=== PATIENT | male | born 1985 | race Caucasian/White ===

== ENCOUNTER 2016-09-07 08:44 | Emergency (ER) | payer BC ==
[~2016-09-07] VITALS: Ht 193 cm; Wt 100.0 kg
[2016-09-07 08:46] VITALS: BP 144/65; PULSE 81; RESP 15; TEMP 98.2; O2SAT 99
--- NOTE | 2016-09-07 10:11 | PD ---
HPI Chief Complaint: Exposure to Blood/Body Fluids Time Seen by Provider: 10:08 Travel History International Travel<30 days: No Contact w/Intl Traveler<30days: No Traveled to known affect area: No History of Present Illness HPI 31-year-old male presents to emergency Department with history of sharing a needle with a girl friend that he feels has HIV. He is here for testing and possible prophylactic treatment. Patient states this occurred 2 days ago. Patient denies fever, chills, or other symptoms. He has no known drug allergies. [facility] Past Medical History Medical History: Denies Significant Hx Past Surgical History Surgical History: No Previous Surgery Social History Alcohol Use: Yes (occ) Tobacco Use: Yes Substance Use: Yes (cocaine, iv drugs) Allergies-Medications (Allergen,Severity, Reaction): Coded Allergies: No Known Allergies (Unverified , 09/07/16) Reported Meds & Prescriptions Reported Meds & Active Scripts Active No Active Prescriptions or Reported Medications Review of Systems Except as stated in HPI: all other systems reviewed are Neg General / Constitutional: No: Fever Eyes: No: Visual changes HENT: No: Headaches Cardiovascular: No: Chest Pain or Discomfort Respiratory: No: Shortness of Breath Gastrointestinal: No: Abdominal Pain Genitourinary: No: Dysuria Musculoskeletal: No: Pain Skin: No Rash Neurologic: No: Weakness Psychiatric: No: Depression Endocrine: No: Polydipsia Hematologic/Lymphatic: No: Easy Bruising Physical Exam Narrative GENERAL: Patient appears no acute distress. SKIN: Warm and dry. Normal puncture wounds from previous IV drug use noted without signs of infection currently. HEAD: Atraumatic. Normocephalic. EYES: Pupils equal and round. No scleral icterus. No injection or drainage. ENT: No nasal bleeding or discharge. Mucous membranes pink and moist. Pharynx is clear and is patent. NECK: Trachea midline. Supple and nontender. CARDIOVASCULAR: Regular rate and rhythm. No murmurs gallops or rubs appreciated. RESPIRATORY: No accessory muscle use. Clear to auscultation. Breath sounds equal bilaterally. MUSCULOSKELETAL: Extremities without clubbing, cyanosis, or edema. No obvious deformities. NEUROLOGICAL: Awake and alert. No obvious cranial nerve deficits. Motor grossly within normal limits. Five out of 5 muscle strength in the arms and legs. Normal speech. PSYCHIATRIC: Appropriate mood and affect; insight and judgment normal. Data Data Last Documented VS Vital Signs Date Time Temp Pulse Resp B/P Pulse Ox O2 Delivery O2 Flow Rate FiO2 09/07/16 08:46 98.2 81 15 144/65 99 MDM Medical Decision Making Medical Screen Exam Complete: Yes Emergency Medical Condition: Yes Differential Diagnosis Possible HIV exposure. History of IV drug use. Need for testing and prophylaxis treatment. Narrative Course Patient is discussed with Dr. Srivastava who recommends patient follow up with the [facility] Department directly today. This will ensure proper follow-up as we cannot provide that here in the emergency department. Patient is agreeable to this plan and will follow with the health department immediately. A medical screening exam was performed: At the time of evaluation the presenting medical condition was determined not to be of an emergent nature. The patient was given the option of receiving additional care, but declined. Patient was given options for additional community resources from which to obtain care. The Patient Has Been advised to seek medical attention for their presenting complaint. The patient has been advised to return to the ER at any time if an emergent condition develops. Scripts No Active Prescriptions or Reported Meds Condition: Julio César Hong Sep 07, 2016 10:11 Disposition: 01 DISCHARGE HOME Condition: Julio César Hong Sep 07, 2016 10:11
== END 2016-09-07 10:51 | disposition left against medical advice (07) ==
LOC: NEPD 08:44
DX: R68.89 Other general symptoms and signs (principal)
CPT/HCPCS: 99281

== ENCOUNTER 2016-12-06 05:42 | Inpatient (IN) | payer BC ==
[~2016-12-06] VITALS: Ht 190.5 cm; Wt 110.0 kg
[2016-12-06 05:46] VITALS: BP 144/88; PULSE 93; RESP 16; TEMP 99.2; O2SAT 97
[2016-12-06] MEDS ORDERED: DIAZ5 PO (05:50)
--- NOTE | 2016-12-06 06:13 | PD ---
HPI Chief Complaint: General Weakness Time Seen by Provider: 05:55 Travel History International Travel<30 days: No Contact w/Intl Traveler<30days: No Traveled to known affect area: No History of Present Illness HPI So 31-year-old man who presents to the emergency department complaining of weakness. He states he has been trying to get off of opiates and so is been taking GHB pretty much every hour. He's had trouble with a lot of diarrhea. He also tried crystal meth recently which he thinks was a mistake. He states he 's gotten more fatigued and weak and has cramps and has difficulty getting out of bed now. States he was by himself. States that GHB helps with his nausea but he thinks he's overdoing it. He also abuses steroids. He had some cough recently. Had nausea but no vomiting. No other recent illnesses or injuries. History Past Medical History Narrative Medical Polysubstance abuse Social History Alcohol Use: Yes (occ) Tobacco Use: Yes Allergies-Medications (Allergen,Severity, Reaction): Coded Allergies: No Known Allergies (Unverified , 09/07/16) Reported Meds & Prescriptions Reported Meds & Active Scripts Active Reported Valium (Diazepam) 5 Mg Tab 5 Mg PO BID PRN Review of Systems Except as stated in HPI: all other systems reviewed are Neg Physical Exam Narrative GENERAL: Muscular 31-year-old man, no acute distress. SKIN: Focused skin assessment warm/dry. NECK: Trachea midline. No JVD. CARDIOVASCULAR: Regular rate and rhythm. No murmur appreciated. RESPIRATORY: No accessory muscle use. Clear to auscultation. Breath sounds equal bilaterally. GASTROINTESTINAL: Abdomen soft, non-tender, nondistended. Hepatic and splenic margins not palpable. MUSCULOSKELETAL: No obvious deformities. No clubbing. No cyanosis. No edema. NEUROLOGICAL: Awake and alert. No obvious cranial nerve deficits. Motor grossly within normal limits. Some mild generalized weakness. Normal speech. PSYCHIATRIC: Appropriate mood and affect; insight and judgment normal. Data Data Last Documented VS Vital Signs Date Time Temp Pulse Resp B/P (MAP) Pulse Ox O2 Delivery O2 Flow Rate FiO2 12/06/16 05:46 99.2 93 16 144/88 (106) 97 Orders Orders Complete Blood Count With Diff (12/06/16 06:03) Comprehensive Metabolic Panel (12/06/16 06:03) Creatine Kinase (Cpk) (12/06/16 06:03) Iv Access Insert/Monitor (12/06/16 06:03) Sodium Chlor 0.9% 1000 Ml Inj (Ns 1000 M (12/06/16 06:15) Ondansetron Inj (Zofran Inj) (12/06/16 06:15) Electrocardiogram (12/06/16 05:50) Labs Laboratory Tests Test 12/06/16 06:09 White Blood Count 8.7 TH/MM3 Red Blood Count 5.74 MIL/MM3 Hemoglobin 18.3 GM/DL Hematocrit 53.5 % Mean Corpuscular Volume 93.3 FL Mean Corpuscular Hemoglobin 31.8 PG Mean Corpuscular Hemoglobin Concent 34.1 % Red Cell Distribution Width 13.7 % Platelet Count 188 TH/MM3 Mean Platelet Volume 9.2 FL Neutrophils (%) (Auto) 67.6 % Lymphocytes (%) (Auto) 20.8 % Monocytes (%) (Auto) 8.3 % Eosinophils (%) (Auto) 2.7 % Basophils (%) (Auto) 0.6 % Neutrophils # (Auto) 5.9 TH/MM3 Lymphocytes # (Auto) 1.8 TH/MM3 Monocytes # (Auto) 0.7 TH/MM3 Eosinophils # (Auto) 0.2 TH/MM3 Basophils # (Auto) 0.1 TH/MM3 CBC Comment AUTO DIFF Blood Urea Nitrogen 8 MG/DL Creatinine 1.18 MG/DL Random Glucose 124 MG/DL Albumin 3.4 GM/DL Calcium Level 9.0 MG/DL Aspartate Amino Transf (AST/SGOT) 231 U/L Alanine Aminotransferase (ALT/SGPT) 142 U/L Sodium Level 142 MEQ/L Potassium Level 2.5 MEQ/L Chloride Level 112 MEQ/L Carbon Dioxide Level 20.8 MEQ/L Anion Gap 9 MEQ/L Estimat Glomerular Filtration Rate 72 ML/MIN MDM Medical Decision Making Medical Screen Exam Complete: Yes Emergency Medical Condition: Yes Interpretation(s) My review of EKG: Normal sinus rhythm at a rate of 94, normal axis, normal intervals, no acute ischemia. Differential Diagnosis Hypokalemia, rhabdomyolysis, adverse effects of illicit drugs, other Narrative Course Medical decision making 31-year-old man presents with generalized weakness and muscle cramps in the setting of opiate withdrawal and GHB abuse. We'll check electrolytes, total CK. Recommend cessation of all illicit drugs. Homer Patel MD Dec 06, 2016 06:13
[2016-12-06] MEDS ORDERED: SODIUM CHLOR 0.9% 1000 ML INJ 1,000 ML IV ONE (06:15)
[2016-12-06] MEDS ORDERED: ONDANSETRON HCL 4 MG/2 ML VIAL IV ONE (06:15)
[2016-12-06 06:19] LABS: AUTOMATED NEUTROPHIL # 5.9 TH/MM3 (1.8-7.7); BASOPHIL # 0.1 TH/MM3 (0-0.2); BASOPHIL % 0.6 % (0.0-2.0); EOSINOPHIL # 0.2 TH/MM3 (0-0.4); EOSINOPHIL % 2.7 % (0.0-4.0); HEMATOCRIT 53.5 % (39.0-51.0); LYMPH % 20.8 % (9.0-44.0); LYMPHOCYTE # 1.8 TH/MM3 (1.0-4.8); MEAN CELL VOLUME 93.3 FL (80.0-100.0); MEAN CORPUSCULAR HEMOGLOBIN 31.8 PG (27.0-34.0); MEAN CORPUSCULAR HGB CONC 34.1 % (32.0-36.0); MONO % 8.3 % (0.0-8.0); NEUT % 67.6 % (16.0-70.0); PLATELET COUNT 188 TH/MM3 (150-450); RED BLOOD COUNT 5.74 MIL/MM3 (4.50-5.90); RED CELL DISTRIBUTION WIDTH 13.7 % (11.6-17.2); WHITE BLOOD COUNT 8.7 TH/MM3 (4.0-11.0)
[2016-12-06 06:29] LABS: HEMO FLAGS AUTO DIFF
[2016-12-06 06:48] LABS: ALT (GPT) 142 U/L (12-78); ANION GAP 9 MEQ/L (5-15); AST (GOT) 231 U/L (15-37); BICARBONATE 20.8 MEQ/L (21.0-32.0); BLOOD UREA NITROGEN 8 MG/DL (7-18); CHLORIDE 112 MEQ/L (98-107); GLOMERULAR FILTRATION RATE 72 ML/MIN (>89); SODIUM (NA) 142 MEQ/L (136-145)
[2016-12-06 06:52] LABS: POTASSIUM 2.5 MEQ/L (3.5-5.1)
[2016-12-06 07:10] VITALS: BP 144/88; PULSE 82; RESP 18; O2SAT 98
[2016-12-06 07:10] LABS: ALKALINE PHOSPHATASE 59 U/L (45-117); CREATINE KINASE 10346 U/L (39-308); TOTAL BILIRUBIN ADULT 0.7 MG/DL (0.2-1.0)
[2016-12-06 07:12] LABS: BANDS 1 % (0-6); BASOPHILS 1 % (0-2); EOSINOPHILS 4 % (0-4); MYELOCYTES 1 % (0-0); NEUTROPHIL # MANUAL DIFF 5.4 TH/MM3 (1.8-7.7); PLATELET ESTIMATE SMEAR NORMAL (NORMAL); PLATELET MORPHOLOGY NORMAL (NORMAL); POLYS (SEG NEUTROPHILS) 60 % (16-70); SCAN/DIFF FINAL DIFF MANUAL; WBC DIFF SAMPLE 100
[2016-12-06 07:28] LABS: CKMB 32.7 NG/ML (0.5-3.6)
[2016-12-06] MEDS ORDERED: LACTULOSE SYRUP 20 GM/30 ML CUP PO PRN (07:45)
[2016-12-06] MEDS ORDERED: NALOXONE HCL 0.4 MG/ML AMP IV PUSH PRN (07:45)
[2016-12-06] MEDS ORDERED: MAGNESIUM HYDROXIDE SUSP 30 ML CUP PO PRN (07:45)
[2016-12-06] MEDS ORDERED: SENNOSIDES 8.6 MG TAB PO PRN (07:45)
[2016-12-06] MEDS ORDERED: NS + KCL 40 MEQ INJ 1,000 ML IV SCH (07:45)
[2016-12-06] MEDS ORDERED: ONDANSETRON HCL 4 MG/2 ML VIAL IVP PRN (07:45)
[2016-12-06] MEDS ORDERED: SODIUM CHLORIDE 0.9% FLUSH 10 ML FLUSH IV FLUSH PRN (07:45)
[2016-12-06] MEDS ORDERED: BISACODYL 10 MG SUPP RECTAL PRN (07:45)
--- NOTE | 2016-12-06 08:58 | PD ---
Physical Exam Date Seen by Provider: Dec 06, 2016 Time Seen by Provider: 07:00 Narrative The patient was slotted to be admitted to the [facility] for a potassium of 2.5. Patient's CPK also came back at 10,000. 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 The patient also has a history of opiate use. The patient was initially amenable to admission. We have started him on normal saline with 40 mEq potassium chloride. At 845, the nurse informed me that the patient wished to sign out AGAINST MEDICAL ADVICE. I did discuss with him that he had a condition that would likely cause damage to his kidneys including kidney failure. I urged him to stay in the hospital as we needed to make sure that we flushed his kidneys with fluids and also treated his low potassium. The patient was appropriate and understood however stated he did not wish to stay. I discussed with him that he can come back at any time. He stated he did not wish to stay. This discussion took place in the presence of the nurse, Nasim Naylor. Data Data Last Documented VS Vital Signs Date Time Temp Pulse Resp B/P (MAP) Pulse Ox O2 Delivery O2 Flow Rate FiO2 12/06/16 07:10 82 18 144/88 (106) 98 Room Air 12/06/16 05:46 99.2 Orders Orders Complete Blood Count With Diff (12/06/16 06:03) Comprehensive Metabolic Panel (12/06/16 06:03) Creatine Kinase (Cpk) (12/06/16 06:03) Iv Access Insert/Monitor (12/06/16 06:03) Sodium Chlor 0.9% 1000 Ml Inj (Ns 1000 M (12/06/16 06:15) Ondansetron Inj (Zofran Inj) (12/06/16 06:15) Electrocardiogram (12/06/16 05:50) CKMB (12/06/16 06:09) CKMB% (12/06/16 06:09) Admit Order (Ed Use Only) (12/06/16 07:34) Ns + Kcl 40 Meq Inj (Ns + Kcl 40 Meq Inj (12/06/16 07:45) Labs Laboratory Tests Test 12/06/16 06:09 White Blood Count 8.7 TH/MM3 Red Blood Count 5.74 MIL/MM3 Hemoglobin 18.3 GM/DL Hematocrit 53.5 % Mean Corpuscular Volume 93.3 FL Mean Corpuscular Hemoglobin 31.8 PG Mean Corpuscular Hemoglobin Concent 34.1 % Red Cell Distribution Width 13.7 % Platelet Count 188 TH/MM3 Mean Platelet Volume 9.2 FL Neutrophils (%) (Auto) 67.6 % Lymphocytes (%) (Auto) 20.8 % Monocytes (%) (Auto) 8.3 % Eosinophils (%) (Auto) 2.7 % Basophils (%) (Auto) 0.6 % Neutrophils # (Auto) 5.9 TH/MM3 Lymphocytes # (Auto) 1.8 TH/MM3 Monocytes # (Auto) 0.7 TH/MM3 Eosinophils # (Auto) 0.2 TH/MM3 Basophils # (Auto) 0.1 TH/MM3 CBC Comment AUTO DIFF Differential Total Cells Counted 100 Neutrophils % (Manual) 60 % Band Neutrophils % 1 % Lymphocytes % 24 % Monocytes % 9 % Eosinophils % 4 % Basophils % 1 % Neutrophils # (Manual) 5.4 TH/MM3 Myelocytes 1 % Differential Comment FINAL DIFF MANUAL Platelet Estimate NORMAL Platelet Morphology Comment NORMAL Blood Urea Nitrogen 8 MG/DL Creatinine 1.18 MG/DL Random Glucose 124 MG/DL Total Protein 7.3 GM/DL Albumin 3.4 GM/DL Calcium Level 9.0 MG/DL Alkaline Phosphatase 59 U/L Aspartate Amino Transf (AST/SGOT) 231 U/L Alanine Aminotransferase (ALT/SGPT) 142 U/L Total Bilirubin 0.7 MG/DL Sodium Level 142 MEQ/L Potassium Level 2.5 MEQ/L Chloride Level 112 MEQ/L Carbon Dioxide Level 20.8 MEQ/L Anion Gap 9 MEQ/L Estimat Glomerular Filtration Rate 72 ML/MIN Total Creatine Kinase 73370 U/L Creatine Kinase MB 32.7 NG/ML Creatine Kinase MB % 0.3 % [facility] Medical Record Reviewed: Yes Supervised Visit with ADWOA: No Narrative Course 31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 The patient was noted to have a potassium of 2.5 by the previous physician caring for this patient. He'll arrange for admission to the [facility] service. The patient was admitted under observation to the service however shortly thereafter decided he did not wish to stay in the hospital. Despite in-depth discussion including discussion that he could possibly , patient stated he still wished to sign out AGAINST MEDICAL ADVICE. The patient was told he come back at any time. AMA: The risks of leaving against medical advice without further evaluation treatment were discussed with the patient. These risks include cardiac dysfunction, cardiac dysrhythmia, possible heart attack, possible stroke or . The patient indicated understanding of these risks and appeared to have the capacity to make this decision. Diagnosis Primary Impression: Hypokalemia Additional Impressions: Rhabdomyolysis Left against medical advice Disposition: 07 AGAINST MEDICAL ADVICE Twin Amador MD Dec 06, 2016 08:58
[2016-12-06] MEDS ORDERED: SODIUM CHLORIDE 0.9% FLUSH 10 ML FLUSH IV FLUSH SCH (09:00)
--- NOTE | 2016-12-06 12:45 | EKG ---
Date Performed: 12/06/2016 Time Performed: 05:50:59 PTAGE: 31 years EKG: Sinus rhythm POSSIBLE LEFT VENTRICULAR HYPERTROPHY AND ST-T CHANGE ABNORMAL ECG NO PREVIOUS TRACING DOCTOR: Fabián Del Real Interpretating Date/Time 12/06/2016 12:44:46
[2016-12-06] MEDS ORDERED: DIAZEPAM 5 MG TAB PO PRN (14:45)
[2016-12-06 16:51] LABS: CKMB 39.6 NG/ML (0.5-3.6)
--- NOTE | 2016-12-06 19:19 | EKG ---
Date Performed: 12/06/2016 Time Performed: 07:23:27 PTAGE: 31 years EKG: Sinus rhythm NONSPECIFIC ST/T ABNORMALITIES ABNORMAL ECG PREVIOUS TRACING : 12/06/2016 05.50 No significant change from previous tracing noted. DOCTOR: Fabián Del Real Interpretating Date/Time 12/06/2016 19:19:01
== END 2016-12-06 09:16 | disposition left against medical advice (07) | DRG 558 ==
LOC: NEPE 05:42 → NEDA 07:36 → OBSVTOIN 07:50
PROVIDERS: ADMIT Internal Medicine; ATTEND Internal Medicine
DX: M62.82 Rhabdomyolysis (principal); E87.6 Hypokalemia; Z72.0 Tobacco use
CPT/HCPCS: 80053; 82550; 82552; 85007; 85027; 93005; 96361; 96374; J2405; J3480; J7030

== ENCOUNTER 2016-12-06 13:39 | Inpatient (IN) | payer BC ==
[2016-12-05] MEDS: D5-1/2 NS + KCL 20 MEQ INJ 1,000 ML IV SCH (21:00)
[~2016-12-06] VITALS: Ht 190.5 cm; Wt 107.0 kg
[2016-12-06] VITALS (7 sets, daily range): BP systolic 144–156; BP diastolic 82–99; PULSE 96–126; RESP 16–24; TEMP 96.2–98.2; O2SAT 96–99
[~2016-12-06 13:39] MED LIST: DIAZ5 PO
[2016-12-06] MEDS ORDERED: BISACODYL 10 MG SUPP RECTAL PRN (14:15)
[2016-12-06] MEDS ORDERED: SODIUM CHLORIDE 0.9% FLUSH 10 ML FLUSH IV FLUSH PRN (14:15)
[2016-12-06] MEDS ORDERED: NALOXONE HCL 0.4 MG/ML AMP IV PUSH PRN (14:15)
[2016-12-06] MEDS ORDERED: LACTULOSE SYRUP 20 GM/30 ML CUP PO PRN (14:15)
[2016-12-06] MEDS ORDERED: MAGNESIUM HYDROXIDE SUSP 30 ML CUP PO PRN (14:15)
[2016-12-06] MEDS ORDERED: SENNOSIDES 8.6 MG TAB PO PRN (14:15)
--- NOTE | 2016-12-06 14:15 | PD ---
HPI Chief Complaint: General Weakness Time Seen by Provider: 13:47 Travel History International Travel<30 days: No Contact w/Intl Traveler<30days: No Traveled to known affect area: No History of Present Illness HPI 31-year-old male presents back to the emergency department after leaving AGAINST MEDICAL ADVICE at approximately 9:30 this morning. The patient originally came for evaluation after he had generalized weakness. He states that he has been using a supplement, GHB. Apparently, he also has a history of opiate abuse. The patient was found to be hypokalemic and a CK of over 10,000. He was admitted to [facility], but then stated that he did not want to stay and left AGAINST MEDICAL ADVICE. The patient states that he thought he would be fine and was scheduled to stay. He wanted to work today. However, upon leaving, he stated he became too weak to walk and return back for evaluation and treatment. He states that he will stay this time and has no desire to leave. The patient endorses nausea, anxiety, generalized weakness. The patient states that he has been using GHB quite a bit over the past 4-5 days and attributes this to his symptoms. [facility] Past Medical History Anxiety: Yes Influenza Vaccination: No Past Surgical History Other Surgery: Yes (LEFT BICEP SURGERY) Social History Alcohol Use: Yes (occ) Tobacco Use: No Substance Use: Yes (cocaine, iv drugs,OPIATES, MEHT ,GHB, STEROIDS ) Allergies-Medications (Allergen,Severity, Reaction): Coded Allergies: No Known Allergies (Unverified , 12/06/16) Reported Meds & Prescriptions Reported Meds & Active Scripts Active Reported Valium (Diazepam) 5 Mg Tab 5 Mg PO BID PRN Review of Systems Except as stated in HPI: all other systems reviewed are Neg Physical Exam Narrative GENERAL: Well-nourished, well-developed male patient, afebrile. SKIN: Focused skin assessment warm/dry. HEAD: Normocephalic. Atraumatic. EYES: No scleral icterus. No injection or drainage. NECK: Supple, trachea midline. No JVD or lymphadenopathy. CARDIOVASCULAR: Regular rhythm without murmurs, gallops, or rubs. Patient is tachycardic. RESPIRATORY: Breath sounds equal bilaterally. No accessory muscle use. Lungs sounds are clear to auscultation. GASTROINTESTINAL: Abdomen soft, non-tender, nondistended. MUSCULOSKELETAL: No cyanosis, or edema. BACK: Nontender without obvious deformity. No CVA tenderness. Data Data Last Documented VS Vital Signs Date Time Temp Pulse Resp B/P (MAP) Pulse Ox O2 Delivery O2 Flow Rate FiO2 12/06/16 13:57 122 24 144/99 (114) 97 Room Air 12/06/16 13:51 98.1 Orders Orders Admit Order (Ed Use Only) (12/06/16 14:06) MDM Medical Decision Making Medical Screen Exam Complete: Yes Emergency Medical Condition: Yes Medical Record Reviewed: Yes Differential Diagnosis Electrolyte abnormality versus dehydration versus acute kidney injury versus rhabdomyolysis Narrative Course This is a 31-year-old male who presents back to the emergency department after leaving AGAINST MEDICAL ADVICE this morning. He is found to be hypokalemic with a CK of over 10,000. The patient states that he would like treatment and states that he will not leave this time. I spoke to Dr. Bragg, hospitalist on- call, who accepted admission and will place orders. Diagnosis Primary Impression: Rhabdomyolysis Qualified Codes: M62.82 - Rhabdomyolysis Additional Impressions: Hypokalemia Generalized weakness Admitting Information Admitting Physician Requests: Admit Talita Ruby Dec 06, 2016 14:15
--- NOTE | 2016-12-06 14:33 | HHI.HP ---
[facility] No Primary Care Physician Admission Diagnosis hypokalemia, rhabdomyolysis, generalized weakness Diagnoses: Chief Complaint: Weakness Travel History International Travel<30 Days: No Contact w/Intl Traveler <30 Da: No Traveled to Known Affected Are: No History of Present Illness Written by Inder Beatty, acting as scribe for Dr. Bragg on 12/06/16 at 14:33. 31-year-old male is medical history of anxiety and polysubstance abuse who presented for generalized weakness. The patient has been having generalized weakness for the past 4 days, has been worsening for the past 2. He has significant muscle pain when he tries to move and states he cannot stand secondary to this. He feels nervous and is having on and off shortness of breath.. He denies any specific chest pain, fever, chills. He has been having nausea, no vomiting. He's been having sweats. The patient tried injecting crystal meth for the first time last Wednesday. He is also been taking "a lot" of GHB for the past 4 or 5 days. The patient also injects anabolic steroids on and off for the past 4 or 5 years, although he is trying to get off of this. He states he's actually been exercising less than normal during this period. He initially did not want to stay in the hospital and left AGAINST MEDICAL ADVICE, but now returns and is agreeable to admission because he cannot ambulate. Review of Systems Except as stated in HPI: all other systems reviewed are Neg Past Family Social History Past Medical History Anxiety Polysubstance abuse Past Surgical History None Reported Medications Reported Meds & Active Scripts Active Reported Valium (Diazepam) 5 Mg Tab 5 Mg PO BID PRN Allergies: Coded Allergies: No Known Allergies (Unverified , 12/06/16) Active Ordered Medications Current Medications Medications (Trade) Dose Ordered Sig/Valencia Route Start Time Stop Time Status Last Admin Potassium Chloride/Dextrose/ Sod Cl 1,000 ml @ 100 mls/hr Q10H IV 12/06/16 14:14 UNV (NS Flush) 2 ml UNSCH PRN IV FLUSH 12/06/16 14:15 UNV (NS Flush) 2 ml BID IV FLUSH 12/06/16 21:00 UNV (Heparin Inj) 5,000 units Q12H SQ 12/06/16 14:15 UNV (Narcan Inj) 0.4 mg UNSCH PRN IV PUSH 12/06/16 14:15 UNV (Milk Of Magnesia Liq) 30 ml Q12H PRN PO 12/06/16 14:15 UNV (Senokot) 17.2 mg Q12H PRN PO 12/06/16 14:15 UNV (Dulcolax Supp) 10 mg DAILY PRN RECTAL 12/06/16 14:15 UNV (Lactulose Liq) 30 ml DAILY PRN PO 12/06/16 14:15 UNV Family History Reviewed, no family history pertinent to current chief complaint Social History Denies any alcohol or tobacco use Injected IV methylprednisolone first time last week Abuse the steroids Abuses [facility] recently 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 In no acute distress. SKIN: Warm and dry. No lesions noted. HEENT: Normocephalic. Pupils equal and round. Mucous membranes pink and moist. CARDIOVASCULAR: Regular rate and rhythm. No murmur appreciated. RESPIRATORY: No accessory muscle use. Clear to auscultation. Breath sounds equal bilaterally. GASTROINTESTINAL: Abdomen soft, non-tender, nondistended. Bowel sounds x4. MUSCULOSKELETAL: No obvious deformities. Lower sternum and muscles TTP. Muscle pain with any ROM. No clubbing or cyanosis. No edema. NEUROLOGICAL: Awake and alert. No focal neurological deficits. Moves upper and lower extremities spontaneously. Normal speech. PSYCHIATRIC: Anxious mood and affect; insight and judgment normal. Caprini VTE Risk Assessment Caprini VTE Risk Assessment: No/Low Risk (score <= 1) Caprini Risk Assessment Model Point Value = 1 Point Value = 2 Point Value = 3 Point Value = 5 Age 41-60 Minor surgery BMI > 25 kg/m2 Swollen legs Varicose veins or History of unexplained or recurrent spontaneous Oral contraceptives or hormone replacement Sepsis (< 1 month) Serious lung disease, including pneumonia (< 1 month) Abnormal pulmonary function Acute myocardial infarction Congestive heart failure (< 1 month) History of inflammatory bowel disease Medical patient at bed rest Age 61-74 Arthroscopic surgery Major open surgery (> 45 min) Laparoscopic surgery (> 45 min) Malignancy Confined to bed (> 72 hours) Immobilizing plaster cast Central venous access Age >= 75 History of VTE Family history of VTE Factor V Leiden Prothrombin [id number] Lupus anticoagulant Anticardiolipin antibodies Elevated serum homocysteine Heparin-induced thrombocytopenia Other congenital or acquired thrombophilia Stroke (< 1 month) Elective arthroplasty Hip, pelvis, or leg fracture Acute spinal cord injury (< 1 month) Prophylaxis Regimen Total Risk Factor Score Risk Level Prophylaxis Regimen 0-1 Low Early ambulation 2 Moderate Order ONE of the following: *Sequential Compression Device (SCD) *Heparin 5000 units SQ BID 3-4 Higher Order ONE of the following medications: *Heparin 5000 units SQ TID *Enoxaparin/Lovenox 40 mg SQ daily (WT < 150 kg, CrCl > 30 mL/min) *Enoxaparin/Lovenox 30 mg SQ daily (WT < 150 kg, CrCl > 10-29 mL/min) *Enoxaparin/Lovenox 30 mg SQ BID (WT < 150 kg, CrCl > 30 mL/min) AND/OR *Sequential Compression Device (SCD) 5 or more Highest Order ONE of the following medications: *Heparin 5000 units SQ TID (Preferred with Epidurals) *Enoxaparin/Lovenox 40 mg SQ daily (WT < 150 kg, CrCl > 30 mL/min) *Enoxaparin/Lovenox 30 mg SQ daily (WT < 150 kg, CrCl > 10-29 mL/min) *Enoxaparin/Lovenox 30 mg SQ BID (WT < 150 kg, CrCl > 30 mL/min) AND *Sequential Compression Device (SCD) Assessment and Plan Assessment and Plan 31-year-old male is medical history of anxiety and polysubstance abuse who presented for generalized weakness and admitted for rhabdomyolysis Rhabdomyolysis: Presented with muscle pain and weakness. Secondary to recent polysubstance abuse. Reviewed: CPK [id number] with mildly elevated LFTs. Potassium 2.5. -Aggressive IVF -Aggressive electrolyte replacement -Monitor labs -PT Polysubstance abuse: Admits to supplement and crystal meth abuse. UDS positive for benzos. -Counseled extensively on cessation Anxiety: -Resume home Valium Polycythemia: Hemoglobin 17.6 and hematocrit 51.5. Likely secondary to steroid abuse. -Monitor DVT prophylaxis: Heparin Discussed Condition With Patient, ED staff This note was transcribed by denzel [Inder Beatty]. I, Dr. Jimmie Bragg personally performed the history, physical exam, and medical decision making; and confirmed the accuracy of the information in the transcribed note. Authenticated by Dr. Jimmie Bragg on 12/07/16 at 07:51. Inder Beatty Dec 06, 2016 14:33 Jimmie Bragg MD Dec 07, 2016 07:54
[2016-12-06 14:36] LABS: AUTOMATED NEUTROPHIL # 9.2 TH/MM3 (1.8-7.7); BASOPHIL % 0.4 % (0.0-2.0); EOSINOPHIL # 0.1 TH/MM3 (0-0.4); EOSINOPHIL % 1.2 % (0.0-4.0); HEMATOCRIT 51.5 % (39.0-51.0); LYMPH % 10.6 % (9.0-44.0); LYMPHOCYTE # 1.2 TH/MM3 (1.0-4.8); MEAN CELL VOLUME 91.4 FL (80.0-100.0); MEAN CORPUSCULAR HEMOGLOBIN 31.3 PG (27.0-34.0); MEAN CORPUSCULAR HGB CONC 34.2 % (32.0-36.0); MONO % 6.1 % (0.0-8.0); NEUT % 81.7 % (16.0-70.0); PLATELET COUNT 187 TH/MM3 (150-450); RED BLOOD COUNT 5.64 MIL/MM3 (4.50-5.90); RED CELL DISTRIBUTION WIDTH 13.3 % (11.6-17.2); WHITE BLOOD COUNT 11.2 TH/MM3 (4.0-11.0)
[2016-12-06 14:38] LABS: HEMO FLAGS AUTO DIFF
[2016-12-06 15:18] LABS: BANDS 5 % (0-6); MYELOCYTES 1 % (0-0); NEUTROPHIL # MANUAL DIFF 9.5 TH/MM3 (1.8-7.7); POLYS (SEG NEUTROPHILS) 79 % (16-70); WBC DIFF SAMPLE 100
[2016-12-06 15:19] LABS: PLATELET ESTIMATE SMEAR NORMAL (NORMAL); PLATELET MORPHOLOGY NORMAL (NORMAL); SCAN/DIFF FINAL DIFF MANUAL
[2016-12-06] MEDS: D5-1/2 NS + KCL 20 MEQ INJ 1,000 ML IV SCH (15:52)
[2016-12-06] MEDS: HEPARIN SODIUM - SQ 10,000 UNITS/ML VIAL SQ SCH (15:53)
[2016-12-06] MEDS ORDERED: LORazepam 2 MG/ML VIAL IV ONE (17:00)
[2016-12-06] MEDS ORDERED: ONDANSETRON HCL 4 MG/2 ML VIAL IV PUSH ONE (17:15)
[2016-12-06] MEDS ORDERED: ONDANSETRON HCL 4 MG/2 ML VIAL IV PUSH PRN (17:30)
[2016-12-06] MEDS ORDERED: DIAZEPAM 5 MG TAB PO PRN (18:15)
[2016-12-06 18:24] LABS: ALT (GPT) 164 U/L (12-78); ANION GAP 9 MEQ/L (5-15); AST (GOT) 324 U/L (15-37); BICARBONATE 22.9 MEQ/L (21.0-32.0); BLOOD UREA NITROGEN 8 MG/DL (7-18); CHLORIDE 112 MEQ/L (98-107); GLOMERULAR FILTRATION RATE 78 ML/MIN (>89); MAGNESIUM 1.8 MG/DL (1.5-2.5); SODIUM (NA) 144 MEQ/L (136-145)
[2016-12-06 18:28] LABS: POTASSIUM 2.7 MEQ/L (3.5-5.1)
[2016-12-06 18:43] LABS: ALKALINE PHOSPHATASE 50 U/L (45-117); TOTAL BILIRUBIN ADULT 0.6 MG/DL (0.2-1.0)
[2016-12-06] MEDS ORDERED: SODIUM CHLOR 0.9% 1000 ML INJ 1,000 ML IV ONE (19:15)
[2016-12-06] MEDS ORDERED: POTASSIUM CHLORIDE 20 MEQ CONTROLLED RELEASE TAB PO ONE (19:15)
[2016-12-06 19:23] LABS: CREATINE KINASE 18422 U/L (39-308)
[2016-12-06] MEDS: LORazepam 2 MG/ML VIAL IV PUSH PRN (19:57)
[2016-12-06 20:04] LABS: CKMB 37.3 NG/ML (0.5-3.6)
[2016-12-06] MEDS ORDERED: SODIUM CHLORIDE 0.9% FLUSH 10 ML FLUSH IV FLUSH SCH (21:00)
[2016-12-07] VITALS: BP 142/76; PULSE 68; RESP 18; TEMP 98; O2SAT 99
[2016-12-07 01:31] LABS: CKMB 30.3 NG/ML (0.5-3.6)
[2016-12-07] MEDS: LORazepam 2 MG/ML VIAL IV PUSH PRN (02:50)
[2016-12-07] MEDS: HEPARIN SODIUM - SQ 10,000 UNITS/ML VIAL SQ SCH (02:51)
[2016-12-07 04:00] VITALS: BP 135/79; PULSE 80; RESP 19; TEMP 97.3; O2SAT 98
[2016-12-07] MEDS: D5-1/2 NS + KCL 20 MEQ INJ 1,000 ML IV SCH (06:03)
[2016-12-07 06:09] LABS: AUTOMATED NEUTROPHIL # 3.9 TH/MM3 (1.8-7.7); BASOPHIL % 0.3 % (0.0-2.0); EOSINOPHIL # 0.2 TH/MM3 (0-0.4); EOSINOPHIL % 3.5 % (0.0-4.0); HEMATOCRIT 46.4 % (39.0-51.0); HEMO FLAGS DIFF FINAL; LYMPH % 27.5 % (9.0-44.0); LYMPHOCYTE # 1.8 TH/MM3 (1.0-4.8); MEAN CELL VOLUME 91.7 FL (80.0-100.0); MEAN CORPUSCULAR HEMOGLOBIN 31.8 PG (27.0-34.0); MEAN CORPUSCULAR HGB CONC 34.6 % (32.0-36.0); MONO % 8.3 % (0.0-8.0); NEUT % 60.4 % (16.0-70.0); PLATELET COUNT 153 TH/MM3 (150-450); RED BLOOD COUNT 5.06 MIL/MM3 (4.50-5.90); RED CELL DISTRIBUTION WIDTH 13.5 % (11.6-17.2); WHITE BLOOD COUNT 6.4 TH/MM3 (4.0-11.0)
[2016-12-07 07:06] LABS: ALKALINE PHOSPHATASE 42 U/L (45-117); ALT (GPT) 166 U/L (12-78); ANION GAP 9 MEQ/L (5-15); AST (GOT) 311 U/L (15-37); BICARBONATE 24.5 MEQ/L (21.0-32.0); BLOOD UREA NITROGEN 10 MG/DL (7-18); CHLORIDE 110 MEQ/L (98-107); GLOMERULAR FILTRATION RATE 88 ML/MIN (>89); POTASSIUM 4.2 MEQ/L (3.5-5.1); SODIUM (NA) 143 MEQ/L (136-145); TOTAL BILIRUBIN ADULT 0.8 MG/DL (0.2-1.0)
[2016-12-07 07:32] LABS: CREATINE KINASE 14497 U/L (39-308)
[2016-12-07 07:56] LABS: CKMB 25.3 NG/ML (0.5-3.6)
== END 2016-12-07 08:44 | disposition left against medical advice (07) | DRG 558 ==
LOC: NEPC 13:39 → NEDA 14:08 → HOCA 16:24
PROVIDERS: ADMIT Internal Medicine; ATTEND Internal Medicine
DX: M62.82 Rhabdomyolysis (principal); D75.1 Secondary polycythemia; F41.9 Anxiety disorder, unspecified; E87.6 Hypokalemia; F19.10 Other psychoactive substance abuse, uncomplicated; T38.0X5A Adverse effect of glucocorticoids and synthetic analogues, initial encounter
CPT/HCPCS: 80053; 80307; 82550; 82552; 83735; 85007; 85025; 85027; J1644; J2060; J2405; J3480; J7030